=== PATIENT | female | born 1995 | race Caucasian/White ===

== ENCOUNTER 2021-07-31 09:26 | Emergency (ER) | payer OTHER ==
[2021-07-31 09:36] VITALS: TEMP 98; BMI 22.4
[2021-07-31] MEDS ORDERED: METOCLOPRAMIDE HCL INJECTION 10 MG/2 ML VIAL IVPUSH ONE (10:31)
[2021-07-31] MEDS ORDERED: ACETAMINOPHEN 1000 MG/100 ML VIAL IVPB ONE (10:31)
[2021-07-31] MEDS ORDERED: ACETAMINOPHEN INJECTION 100 ML IVPB ONE (11:01)
[2021-07-31] MEDS ORDERED: METOCLOPRAMIDE HCL INJECTION 10 MG/2 ML VIAL ONE (11:01)
[2021-07-31 14:05] VITALS: BP 114/64; PULSE 56
== END 2021-07-31 14:05 | disposition home or self-care (01) ==
LOC: JER 09:26
PROC: 3E0333Z Introduction of Anti-inflammatory into Peripheral Vein, Percutaneous Approach (ICD-10-PCS; principal; 2021-07-31)
PROC: 3E033GC Introduction of Other Therapeutic Substance into Peripheral Vein, Percutaneous Approach (ICD-10-PCS; 2021-07-31)
DX: R51.9 Headache, unspecified (principal)
CPT/HCPCS: 70450-TC; 82962; 84703; 99284-25; J0131